=== PATIENT | female | born 1935 | race Caucasian/White ===

== ENCOUNTER 2019-12-13 10:45 | Outpatient (CLI) | payer MEDICARE, OTHER ==
--- NOTE | 2019-12-13 13:38 | RAD ---
CERVICAL SPINE FOUR VIEWS: 12/13/19 HISTORY: Pain. FINDINGS: The frontal exam demonstrates severe multilevel bilateral mid cervical spine facet and uncovertebral osteophyte formation, left greater than right. The neutral lateral examination demonstrates no signif icant anterolisthesis or retrolisthesis. There is multilevel disc space narrowing and anterior osteop hyte formation most prominent at C5-6 and C6-7. Flexion and extension imaging demonstrates no signif icant anterolisthesis or retrolisthesis. IMPRESSION: Prominent multilevel cervical spine degenerative change as detailed above. POS: GABRIELA
== END 2019-12-13 10:46 | disposition home or self-care (01) ==
LOC: BICRAD 10:45
PROVIDERS: ATTEND Chiropractor
DX: S13.4XXA Sprain of ligaments of cervical spine, initial encounter (principal); M47.812 Spondylosis without myelopathy or radiculopathy, cervical region
CPT/HCPCS: 72050